=== PATIENT | female | born 1945 | race Caucasian/White ===

== ENCOUNTER 2020-11-11 15:20 | Outpatient (CLI) | payer MEDICARE, SELFPAY ==
--- NOTE | 2020-11-11 15:45 | XR_ITS ---
WS: [id number] Right arm and humerus, 3 views, 11/11/2020 Clinical Data: M79.601 - Pain in right arm Comparison: None. Findings: No new fractures or dislocations are seen. The shaft of the humerus is intact. There is a plate in t he distal right humerus fixed with multiple screws reducing an old fracture. The soft tissues are nor mal. XR/[place] [id number] Impression: Negative for new fracture of the right humerus.
--- NOTE | 2020-11-11 15:45 | XR_ITS ---
WS: [id number] Right rib detail, 2 views, 11/11/2020 Clinical Data: R07.81 - Pleurodynia Comparison: None. Findings: No rib fractures are seen. There is no right pneumothorax. No subcutaneous emphysema is seen. There i s a vena caval filter. XR/XR ribs RT 2V* [id number] Impression: Negative right rib detail.
== END 2020-11-11 15:21 | disposition home or self-care (01) ==
PROVIDERS: PCP Nurse Practitioner Family; Visit Provider Emergency Medicine
DX: M79.601 Pain in right arm (principal); R07.81 Pleurodynia
CPT/HCPCS: 71100; 73060

== ENCOUNTER → 2021-04-19 13:38 | Outpatient (BNVA) | payer MEDICARE, SELFPAY | PROVIDERS: PCP Nurse Practitioner Family; Referring Provider Nurse Practitioner Family; Visit Provider Nurse Practitioner Family | DX: M25.511 Pain in right shoulder (principal) | CPT/HCPCS: 73030 ==

== ENCOUNTER 2021-08-24 12:00 | Outpatient (CLI) | payer MEDICARE, SELFPAY ==
--- NOTE | 2021-08-24 12:18 | MR_ITS ---
WS: [id number] MRI CERVICAL SPINE NONCONTRAST HISTORY: RADICULOPATHY CERVICAL REGION COMPARISON: None available. Technique: Multiplanar, multisequence noncontrast imaging of the cervical spine. Straightening and slight reversal the normal cervical lordosis. Reversal centered at C5-6. No marrow edema or fracture. Advanced degenerative disc disease at C5-6 and C6-7. Mild throughout the remaining cervical disc spac es. No signal abnormality within the cord. Craniocervical junction, C1 and C2 relationship, odontoid process and soft tissues are normal. C2-C3: No stenosis. Mild facet joint arthritis. C3-C4: Mild osteophytic ridging. No stenosis. Moderate bilateral facet joint arthritis. C4-C5: Mild annular disc bulging. Moderate facet joint arthritis. No central stenosis but there is mo derate bilateral foraminal stenosis due to disc and osteophyte and facet arthritis. C5-C6: Osteophytic ridging with annular disc bulging encroaching upon the ventral thecal sac. Deformi ty the ventral cervical cord with at least moderate stenosis and bilateral foraminal stenosis. Modera te facet joint arthritis. C6-C7: Diffuse annular disc bulge with osteophytic ridging. Mild encroachment upon the ventral thecal sac. Moderate central and bilateral foraminal stenosis. C7-T1: No significant stenosis. Paraspinal soft tissue are normal. MR/MR cervical spin wo con* [id number] IMPRESSION: 1. Advanced degenerative disc disease at C5-6 and C6-7 with disc and osteophyt e encroachment upon the cervical cord. 2. Moderate central and bilateral foraminal stenosis at C5-6 with encroachment upon the cord. 3. Moderate central and bilateral foraminal stenosis at C6-7. 4. Moderate bilateral facet joint arthritis at C3-4 and C4-5.
== END 2021-08-24 12:01 | disposition home or self-care (01) ==
PROVIDERS: PCP Nurse Practitioner Family; Visit Provider Internal Medicine
DX: M54.12 Radiculopathy, cervical region (principal); M50.322 Other cervical disc degeneration at C5-C6 level; M25.78 Osteophyte, vertebrae; M48.02 Spinal stenosis, cervical region; M47.812 Spondylosis without myelopathy or radiculopathy, cervical region
CPT/HCPCS: 72141

== ENCOUNTER → 2021-09-09 13:32 | Outpatient (BNVA) | payer MEDICARE, SELFPAY | PROVIDERS: PCP Nurse Practitioner Family; Visit Provider Nurse Practitioner Family | DX: M19.041 Primary osteoarthritis, right hand (principal); M79.641 Pain in right hand | CPT/HCPCS: 73130 ==